=== PATIENT | female | born 1985 | race Caucasian/White ===

== ENCOUNTER 2021-01-16 11:50 | Outpatient (CLI) | payer OTHER ==
[2021-01-16] MEDS ORDERED: Collagen PO (12:33)
[2021-01-16] MEDS ORDERED: ALBU8.5H8 INH (12:33)
[2021-01-16] MEDS ORDERED: THYR15TA PO (12:33)
[2021-01-16] MEDS ORDERED: ASCO100019 PO (12:33)
[2021-01-16] MEDS ORDERED: [UNRECOGNIZED DRUG - OTHER] PO (12:33)
[2021-01-16] MEDS ORDERED: BECL10.62 INH (12:33)
[2021-01-16] MEDS ORDERED: SERT50TA28 PO (12:33)
[2021-01-16] MEDS ORDERED: SELE200T10 PO (12:33)
[2021-01-16] MEDS ORDERED: PANT40TA6 PO (12:33)
[2021-01-16] MEDS ORDERED: THYR60TA PO (12:33)
[2021-01-16] MEDS ORDERED: DICY20TA4 PO (12:33)
[2021-01-16] MEDS ORDERED: CLOB15CR19 TD (12:33)
[2021-01-16] MEDS ORDERED: MONT10TA6 PO (12:33)
[2021-01-16] MEDS ORDERED: stool softener PO (12:33)
[2021-01-16] MEDS ORDERED: BIOT1TAB2 PO (12:33)
[2021-01-16] MEDS ORDERED: FAMO20TA7 PO (12:33)
[2021-01-16] MEDS ORDERED: HYDR-3237 PO (12:33)
[2021-01-16] MEDS ORDERED: Vitamin D3 PO (12:33)
== END 2021-01-16 23:59 | disposition home or self-care (01) ==
LOC: STAR 11:50
PROVIDERS: ATTEND Thoracic Surgery (Cardiothoracic Vascular Surgery)
DX: Z20.822 Contact with and (suspected) exposure to COVID-19 (principal)
CPT/HCPCS: U0003

== ENCOUNTER 2021-01-21 08:29 | Day surgery (SDC) | payer BC, OTHER ==
[~2021-01-21] VITALS: Ht 160 cm; Wt 91.9 kg
[~2021-01-21 08:29] MED LIST: ALBU8.5H8 INH; ASCO100019 PO; BECL10.62 INH; BIOT1TAB2 PO; BUPIVACAINE/PF 0.5% ONE; CLOB15CR19 TD; Collagen PO; DICY20TA4 PO; EPINEPHRINE 1 MG/ML, 1ML ONE; FAMO20TA7 PO; HYDR-3237 PO; MONT10TA6 PO; PANT40TA6 PO; SELE200T10 PO; SERT50TA28 PO; THYR15TA PO; THYR60TA PO; Vitamin D3 PO; [UNRECOGNIZED DRUG - OTHER] PO; stool softener PO
[2021-01-21] MEDS ORDERED: LACTATED RINGERS 1,000 ML IV SCH ×2 (09:00→12:00)
[2021-01-21] MEDS ORDERED: CHLORHEXIDINE 15 ML UDC PO ONE (09:00)
[2021-01-21] MEDS ORDERED: CHLORHEXIDINE 15 ML UDC ONE (09:17)
[2021-01-21 09:20] LABS: HCG UR SG 1.023 (1.003-1.030)
[2021-01-21 09:42] VITALS: BP 120/84
[2021-01-21] MEDS ORDERED: DEXAMETHASONE 4 MG/ML, 5ML ONE (10:32)
[2021-01-21] MEDS ORDERED: FENTANYL PF 250 MCG/5ML ONE (10:32)
[2021-01-21] MEDS ORDERED: MIDAZOLAM 1 MG/ML, 2ML ONE (10:32)
[2021-01-21] MEDS ORDERED: PROPOFOL 10 MG/ML, 20ML ONE (10:37)
[2021-01-21] MEDS ORDERED: ROCURONIUM 10MG/ML,5ML ONE (10:37)
[2021-01-21] MEDS ORDERED: CEFAZOLIN 1,000 MG ONE ×2 (10:37)
[2021-01-21] MEDS ORDERED: ONDANSETRON 2MG/ML, 2ML ONE ×2 (10:37)
[2021-01-21] MEDS ORDERED: GLYCOPYRROLATE 0.2MG/1ML, 5ML ONE (10:41)
[2021-01-21] MEDS ORDERED: NEOSTIGMINE 1 MG/ML, 10ML ONE (10:41)
[2021-01-21] MEDS ORDERED: BUPIVACAINE/PF-EPI 0.5% 1:200K INFIL ONE (10:56)
[2021-01-21] MEDS ORDERED: FENTANYL PF 100 MCG/2ML ONE (11:10)
[2021-01-21] MEDS ORDERED: HYDR5SOL2 PO (11:47)
[2021-01-21] MEDS ORDERED: morphine SULFATE 10 MG/ML, 1ML IVPush PRN (12:00)
[2021-01-21] MEDS ORDERED: ONDANSETRON 2MG/ML, 2ML IVPush PRN ×2 (12:00)
[2021-01-21] MEDS ORDERED: MEPERIDINE/PF 25MG/0.5ML IVPush PRN (12:00)
[2021-01-21] MEDS ORDERED: ALBUTEROL SULFATE 2.5 MG/3 ML NPPB PRN (12:00)
[2021-01-21] MEDS ORDERED: hydrALAzine 20 MG/ML, 1ML IV PRN (12:00)
[2021-01-21] MEDS ORDERED: EPHEDRINE 50 MG/ML, 1ML IVPush PRN (12:00)
[2021-01-21] MEDS ORDERED: LABETALOL 5MG/ML, 20ML IV PRN (12:00)
[2021-01-21] MEDS ORDERED: FENTANYL PF 100 MCG/2ML IV PRN (12:00)
[2021-01-21] MEDS ORDERED: HYDROcodone/APAP 7.5-325MG/15ML UDC PO PRN ×2 (12:00)
[2021-01-21] MEDS ORDERED: DIAZEPAM 5 MG/ML, 2ML IVPush PRN (12:00)
[2021-01-21] MEDS ORDERED: ALBUTEROL HFA 90 MCG/SPRAY INH PRN (12:00)
[2021-01-21] MEDS ORDERED: HYDROmorphone 1 MG/ML, 1ML INJ IVPush PRN (12:00)
[2021-01-21] MEDS ORDERED: PROMETHAZINE 12.5 MG SUPP PR PRN (12:00)
[2021-01-21] MEDS ORDERED: ACETAMINOPHEN 325 MG TABLET PO PRN (12:00)
[2021-01-21] MEDS ORDERED: METHOCARBAMOL 1,000 MG in DEXTROSE 5% 100 ML IV ONE (12:00)
[2021-01-21] MEDS ORDERED: MIDAZOLAM 1 MG/ML, 2ML IV PRN (12:00)
[2021-01-21] MEDS ORDERED: DIPHENHYDRAMINE 50 MG/ML, 1ML IVPush PRN ×2 (12:00)
[2021-01-21] MEDS ORDERED: KETOROLAC 30 MG/1 ML IVPush PRN (12:00)
[2021-01-21] MEDS ORDERED: PROMETHAZINE 25 MG/ML, 1ML IVPush PRN (12:00)
[2021-01-21] MEDS ORDERED: OXYcodone 5 MG/5 ML ORAL.SOL UDC PO PRN (12:00)
[2021-01-21] MEDS ORDERED: KETOROLAC 30 MG/1 ML ONE (12:02)
== END 2021-01-21 14:50 | disposition home or self-care (01) ==
LOC: OUT 08:29
PROVIDERS: ATTEND Thoracic Surgery (Cardiothoracic Vascular Surgery)
DX: K44.9 Diaphragmatic hernia without obstruction or gangrene (principal); K21.9 Gastro-esophageal reflux disease without esophagitis; K20.90 Esophagitis, unspecified without bleeding; J45.909 Unspecified asthma, uncomplicated; E03.9 Hypothyroidism, unspecified; Z79.890 Hormone replacement therapy; Z79.899 Other long term (current) drug therapy
CPT/HCPCS: 43280; 81025; J0171; J0690; J1100; J1885; J2250; J2405; J2704; J2710; J2800; J3010; J7120